=== PATIENT | female | born 1995 | race Two or more races ===

== ENCOUNTER 2022-03-09 18:51 | Inpatient (IN) | payer MEDICAID, SELFPAY ==
[2022-03-09] VITALS (9 sets, daily range): BP systolic 137–163; BP diastolic 78–97; PULSE 88–110; TEMP 36.6–37.4; O2SAT 97–98; BMI 30.2
[2022-03-09] MEDS: 0.9% Saline Lock 10 ML Syringe IV ×2 (19:45→20:38)
--- NOTE | 2022-03-09 20:11 | HP.PCM.OB_ITS ---
HPI - General General Date of Admission: 03/09/22 HPI Narrative KARTHIK BECKMAN, is a 26 F at39.5 weeks gestation who presents for scheduled elective induction of labor. has been uncomplicated. Maternal Data Information KARYNA Calculator Estimated Delivery Date Method Current WG Current Estimate 03/11/22 Manual 39w 5d PFSH PFSH Medical History (Updated 03/09/22 @ 21:12 by Hilda Dasilva CNM) Anxiety Depression Home Medications famotidine 20 mg tablet (Pepcid) 20 mg PO PRN PRN Heartburn 03/09/22 [History Last Taken Unknown] prenat.vits,maninder,ums-kyzt-pzwpg 1 tab PO PRN PRN Heartburn 03/09/22 [History Last Taken 03/09/22] Allergy/AdvReac Type Severity Reaction Status Date / Time pomegranate Allergy Rash Verified 03/09/22 20:32 Family History (Updated 03/09/22 @ 20:22 by Brett Gonzalez) Grandfather Cancer Father Cancer Mother Depression Surgical History (Updated 03/09/22 @ 20:23 by Brett Gonzalez) History of surgery Social History Smoking Status: Former smoker History Elective abortions Hx Para 0 Spontaneous abortions Hx # Term Pregnancies Ectopic pregnancies Hx # Pregnancies Multiple births # of living children Visit Details OB Flowsheet Initial Weight: Not Recorded Date -?-?-?-?-?-?-?-?-?-?-?-?- EGA Weight BP Urine Prot -?-?-?-?-?-?-?-?-?-?-?-?- Glucose FHR FuHt Pres Dilation -?-?-?-?-?-?-?-?-?-?-?-?- Effaced St Visit Note 03/09/22 -?-?-?-?-?-?-?-?-?-?-?-?- 39w 5d 182 lb 159/91 163/97 138/78 150/83 -?-?-?-?-?-?-?-?-?-?-?-?- -?-?-?-?-?-?-?-?-?-?-?-?- NST FHR Rate Baby A Baseline: 130 Variability:: Moderate Accelerations:: 15 x 15 Decelerations:: None NST Reactive:: Yes FHR Category:: Category I Uterine Activity:: 2-4 minutes ROS Eyes Eyes: Denies blurry vision, change in vision or spots in vision ENT HEENT: Denies dizziness or headache(s) Cardiovascular Cardiovascular: Denies abdominal pain, chest pain or dyspnea Respiratory/Chest Respiratory/Chest: Denies cough, dyspnea, shortness of breath at rest or shortness of breath with exertion Gastrointestinal Gastrointestinal: Denies abdominal pain, diarrhea or vomiting Genitourinary Genitourinary: Denies change in urinary stream, difficulty urinating or dysuria Musculoskeletal Musculoskeletal: Reports none Integumentary Integumentary: Denies rash Neurologic Neurologic: Denies dizziness, headache(s), memory loss or weakness Psychiatric Psychiatric: Reports none Vital Signs Vital Signs Vital Signs: 03/09/22 19:24 03/09/22 19:24 03/09/22 19:24 Temperature 98.6 F Pulse Rate 106 H Blood Pressure 159/91 H BP Systolic 159 BP Diastolic 91 Pulse Ox 03/09/22 19:25 03/09/22 19:25 03/09/22 19:40 Temperature Pulse Rate 110 H Blood Pressure 163/97 H BP Systolic 163 BP Diastolic 97 Pulse Ox 98 03/09/22 19:40 03/09/22 20:09 03/09/22 20:09 Temperature Pulse Rate 107 H 103 H Blood Pressure 138/78 H BP Systolic 138 BP Diastolic 78 Pulse Ox Weight Weight: 182 lb Body Mass Index (BMI) 30.2 Physical Exam Const alert, oriented x3 and no apparent distress General Appearance: cooperative Orientation / Consciousness: awake Exam Limitations: no limitations HEENT normocephalic Head and Scalp: normal to inspection Eyes General Eye: normal appearance of both eyes Neck full ROM and no lymphadenopathy Lymph Lymphatic: no lymphadenopathy noted Chest inspection of chest normal Resp normal respiratory effort, normal air movement and clear to auscultation bilaterally Effort and Inspection: able to speak in complete sentences and symmetric chest movement Cardio regular rate and regular rhythm GI normal to inspection, nondistended, normoactive bowel sounds Manual OB Exam: presentation cephalic Back/Spine normal ROM Extremity full ROM and no calf tenderness Skin no rashes or lesions noted General Skin Exam: no breakdown Neuro oriented x3 and CN's II-XII intact bilaterally Psych mental status grossly normal and thought process normal Labs Labs Labs: Blood Type Pending Antibody Screen Pending Hct 30.3 % (37-47) L Hgb 10.2 g/dL (12.0-15.0) L Assessment & Plan (1) 39 weeks gestation of : (2) Elective induction of labor planned: (3) Positive GBS test: (4) History of depression: (5) Primigravida: (6) Elevated blood pressure reading without diagnosis of hypertension: PLAN: Plan Admit to labor and delivery Initial blood pressures elevated- no history of hypertension Routine labs + PIH labs Start IV and run fluids per orders GBS positive- Start PCN 5 million units IV x 1 now and continue PCN 3 million units IV every 4 hours until delivery CE /-2 Stafford bulb placed without difficulty and inflated with 30 cc N/S Cat 1 racing, NST reactive Start Pitocin IV at 2 mu/min and increase per policy Pain medication when indicated Dr. Perez notified of admission and is collaborating physician
[2022-03-09 20:37] LABS: Absolute Lymphocyte Count 2.13 X10^3/uL (0.83-4.51); Absolute Neutrophil Count 11.4 X10^3/uL (2.0-7.7); Basophil# 0.05 X10^3/uL; Basophil% 0.3 % (0-1); Eosinophil# 0.14 X10^3/uL; Eosinophils% 0.9 % (0-5); Hematocrit 30.3 % (37-47); Hemoglobin 10.2 g/dL (12.0-15.0); Lymphocyte # 2.13 X10^3/ul (0.83-4.51); Lymphocyte % 14.3 % (19-41); Mean Corp Hgb Conc 33.7 g/dL (32-36); Mean Corpuscular Hgb 28.4 pg (27.0-32.0); Mean Corpuscular Volume 84.4 fL (81-99); Mean Platelet Vol. 9.8 fl (6.2-12.0); Monocyte# 1.01 X10^3/uL; Monocyte% 6.8 % (0-10); NRBC Flagged by Analyzer 0 % (0-5); Neutrophil % 76.9 % (47-70); Platelet Count 291 K/mm3 (150-450); RBC Distribution Width CV 12.4 % (11.6-14.6); RBC Distribution Width SD 37.9 fl (35.1-43.9); Red Blood Count 3.59 M/mm3 (4.2-5.4); White Blood Count 14.9 K/mm3 (4.4-11.0)
[2022-03-09] MEDS: Lactated Ringers 1,000 ML 50 ML IV (20:37)
[2022-03-09] MEDS: Oxytocin 15 Units/NS 250ml 15 UNITS/250 ML IV.SOLN 2 UNITS IV (21:30)
[2022-03-09] MEDS: 0.9% Normal Saline Single 100 ML IV.SOLN. INTRA-UTER (21:34)
[2022-03-09 21:43] LABS: AST(SGOT) 21 U/L (15-37); Alanine Aminotransfer ALT/SGPT 21 U/L (13-56); Creatinine, Serum 0.92 mg/dL (0.55-1.02); EST Glomerular Filtration Rate 78 mL/min (>60); Est Glom Filt Rate - Afr Amer 94 mL/min (>60); Estimated Creatinine Clearance 83.38 ml/min; Uric Acid 3.9 mg/dL (2.6-6.0)
[2022-03-09 22:34] LABS: Protein, Urine (Random) 9.7 mg/dL (<11.9); Protein:Creat Ratio 273 mg/g CRE (0-200)
[2022-03-10] VITALS (79 sets, daily range): BP systolic 84–162; BP diastolic 45–93; PULSE 83–136; RESP 16; TEMP 36.3–37.4; O2SAT 92–100
[2022-03-10] MEDS: LACTATED RINGERS 500 ML 999 ML IV ×3 (00:22→13:33)
[2022-03-10] MEDS: fentaNYL-bupivacaine (epidural) 100 ML BAG EPIDURAL ×3 (01:15→11:45)
[2022-03-10] MEDS: Penicillin G 3,000,000 Units 50 ML 100 UNITS IV ×3 (01:42→10:25)
[2022-03-10] MEDS: Mag Hydrox/Al Hydrox/Simeth 30 ML UDC PO ×2 (03:02→10:25)
[2022-03-10] MEDS: Lactated Ringers 1,000 ML 200 ML IV ×2 (03:03→08:56)
[2022-03-10] MEDS: Ondansetron 4 MG/2 ML Vial IV (06:19)
--- NOTE | 2022-03-10 07:08 | PCM.PN.BLA ---
Progress Note Patient comfortable with epidural. Resting well. Assessment & Plan Assessment/Plan (1) Elective induction of labor planned: (2) 39 weeks gestation of : (3) Positive GBS test: PLAN: Plan Blood pressures within normal ranges GBS positive- Has gotten 3 doses of PCN IV- continue every 4 hours CE- 4.5/80/-1 AROM for clear fluid Pitocin 14 mu/min- continue to increase per policy NST reactive, Cat. 1 tracing Anticipate
--- NOTE | 2022-03-10 13:13 | OP.PCM_ITS ---
Maternal Data Information KARYNA Calculator Estimated Delivery Date Method Current Current Estimate 03/11/22 Manual 39w 6d Gestational age: 39.6 Vaginal Delivery Maternal Presentation Maternal Presentation: Elective Induction Type of Induction: Pitocin, Stafford Bulb and Amniotomy Operative Information Date of Procedure: 03/10/22 Pre-Operative Diagnosis: Term gestation, 39.6 weeks elective IOL, mild elevation BPs, Post-Operative Diagnosis: same, live female Surgery / Procedure Performed: Spontaneous Vaginal Delivery Type of Anesthesia: Epidural Drain: Stafford to straight drain Estimated Blood Loss: 300 Time of Delivery: 12:36 Findings Description of Procedure: Patient progressed to fully dilated. Good maternal pushing efforts delivered the infant's head. Followed by gentle downward traction delivered the infant's anterior shoulder followed by the rest the 's body. The was then placed on the mother's chest for immediate skin to skin. Delayed cord clamping was performed. Terminal meconium noted at time of delivery. Infant was vigorous at time of delivery. After cord was clamped and cut Pitocin was started. The placenta was then delivered intact without complication. Second- degree perineal laceration was repaired using 2-0 Vicryl and 3 -0 rapide. Brisk bleeding was still noted from the cervix. Evaluation was performed and the cervix was evaluated there was no cervical laceration but cervix was denuded on the posterior aspect. Pressure was held and good hemostasis was appreciated. No retained products were appreciated on exam. Bleeding was controlled. Presentation: Vertex Amniotic Membrane Rupture Type: Artificial Amniotic Fluid Description: Clear Placental Delivery Description: Spontaneous Placenta Disposition: [facility] Cord Vessel Description: 3 Vessels Cord Entanglement: None A Gender: Female (1 minute): 8 (5 minute): 9 Delayed Cord Clamping: Yes Post Vaginal Delivery Medications Given After Delivery: IV Pitocin Episiotomy Description: None Laceration: Perineal Extension/lac and 2nd degree Complication Complications: None
[2022-03-10] MEDS: Ibuprofen 600 MG Tablet PO ×2 (14:49→23:02)
[2022-03-10] MEDS: Acetaminophen 500 MG Tablet 1000 MG PO (18:04)
[2022-03-11] VITALS (9 sets, daily range): BP systolic 101–130; BP diastolic 58–72; PULSE 81–108; RESP 16; TEMP 36.4–37.7; O2SAT 98–99
--- NOTE | 2022-03-11 02:27 | NURSING ---
MOB requested pacifier. this RN educated MOB on pacifer use with . MOB verbalized understanding, still desiring a pacifier. This RN took a pacifier to room.
[2022-03-11] MEDS: Acetaminophen 500 MG Tablet 1000 MG PO ×2 (02:33→11:03)
--- NOTE | 2022-03-11 08:13 | PCM.PN.OB ---
Subjective Subjective Patient is doing well. She desires discharge home today. Having some cramping with breast-feeding. Lochia is normal. No issues with breast-feeding at this time. She is ambulating and voiding without difficulty. She is tolerating regular diet without nausea or vomiting. She denies chest pain, shortness of breath, leg pain. Objective Data Objective Data Vital Signs: Vital Signs Temp Pulse Resp BP Pulse Ox O2 Del Method 97.5 F L 91 16 130/72 H 99 Room Air 03/11/22 05:16 03/11/22 07:58 03/11/22 05:16 03/11/22 07:58 03/11/22 07:58 03/11/22 05:16 Oxygen Delivery Method Room Air Weight: 182 lb Body Mass Index (BMI) 30.2 Intake & Output: Intake and Output for Last 24 Hours 03/09/22 03/10/22 03/11/22 23:59 23:59 23:59 Intake Total 110.17 / 110.17 3953.17 / 3953.17 Output Total 5900 / 5900 Balance 110.17 / 110.17 -1946.83 / -1946.83 Lab / Micro Data Result Diagrams: 03/09/22 20:10 03/09/22 20:34 Physical Exam Const alert and no apparent distress Constitutional Narrative: Holding baby General Appearance: comfortable Assessment & Plan (1) Vaginal delivery: PLAN: S/p . Doing well and desires discharge home. . Reviewed discharge instructions. (2) Perineal laceration:
--- NOTE | 2022-03-11 08:16 | DCINST_ITS ---
Discharge Instructions Diet Discharge Diet: No restrictions Activity Discharge Activity: May Shower May resume sexual activity in: 6 weeks Ice area for (Minutes): 15 Weight Bearing Status: Weight bearing as tolerated Lifting Restrictions: Nothing heavier than baby Dressing / Incision Call your doctor if your incision/area has: Sudden Increased Bleeding, Increased Pain/ Swelling, Increased Redness, Foul Smelling Discharge and Swelling at the incision site Call your doctor if you observe: Fever of 101 or Higher, Coldness, Increased Pain, Numbness or Tingling, Change in Color, Inability to urinate, Inability to have a bowel movement, Using more than 1 pad per hour, Shortness of breath, Dizziness, Fainting spells, Swelling in the ankles, Chest pain, Increased palpitations (irregular heartbeat), Calf discomfort and Uncontrolled pain Cleanse incision/area with: Soap & Water (Sutures typically dissolve by 6 week exam) Follow Up Care When: 1-2 weeks for early if you desire 6 week for exam and visit Test Results: Test results from this visit will be discussed in further detail at your follow- up appointment, if applicable. Discharge Plan Admission Admit Date/Time: 03/09/22 18:51 Primary Reason for Your Visit: Delivery Attending Provider: Rachel Carlton Instructions Patient Instructions: After a Vaginal Discharge Orders/Prescriptions Prescriptions: Continued prenat.vits,maninder,[id number] Tablet 1 tab PO PRN PRN (Reason: Heartburn) Discontinued famotidine [Pepcid] 20 mg Tablet 20 mg PO PRN PRN (Reason: Heartburn) Disposition Disposition (needs filled in before D/C Order can be placed): Home, Self Care
[2022-03-11] MEDS: Ibuprofen 600 MG Tablet PO (11:03)
--- NOTE | 2022-03-15 13:48 | NURSING ---
Follow up phone call done: Patient denies any problems or complications, says everything has been really good, denies complications, denies increased bleeding. Reports nursing is going much better, her milk is in. Had a appt. already and it was helpful! Baby is doing much better. Loved [place] and Priscila.
--- NOTE | 2022-03-22 09:27 | NURSING ---
Delivery record edited from stillborn to liveborn
== END 2022-03-11 16:00 | disposition home or self-care (01) | DRG 560 ==
PROVIDERS: Advanced Practice Midwife; Admitting Provider Obstetrics & Gynecology; Referring Provider Obstetrics & Gynecology; Visit Provider Obstetrics & Gynecology
DX: O99.892 Other specified diseases and conditions complicating childbirth (principal); Z37.0 Single live birth; R03.0 Elevated blood-pressure reading, without diagnosis of hypertension; O77.0 Labor and delivery complicated by meconium in amniotic fluid; O99.824 Streptococcus B carrier state complicating childbirth; O70.1 Second degree perineal laceration during delivery; Z3A.39 39 weeks gestation of pregnancy; Z90.49 Acquired absence of other specified parts of digestive tract; Z87.891 Personal history of nicotine dependence
CPT/HCPCS: 59025; 59050; 82565; 82570; 84156; 84450; 84460; 84550; 85025; 86850; 86900; 86901; 99221; J7120; A4216; G0378; J2405